=== PATIENT | female | born 1955 | race Two or more races ===

== ENCOUNTER 2022-12-22 14:41 | Emergency (ER) | payer OTHER ==
[~2022-12-22] VITALS: Ht 160 cm; Wt 73.0 kg
[2022-12-22 16:18] VITALS: BP 140/89
[2022-12-22] MEDS ORDERED: TETANUS-DIPTH-ACEL PERTUSSIS 0.5ML SYR Tdap IM ONE (16:45)
[2022-12-22] MEDS ORDERED: cefTRIAXone SOD 1,000 MG VL IM ONE (16:45)
[2022-12-22] MEDS ORDERED: AMOX500T86 PO (17:16)
[2022-12-22] MEDS ORDERED: NAPR500T31 PO (17:16)
== END 2022-12-22 17:28 | disposition home or self-care (01) ==
LOC: ER 14:41
DX: S61.250A Open bite of right index finger without damage to nail, initial encounter (principal); Z90.49 Acquired absence of other specified parts of digestive tract; Z90.710 Acquired absence of both cervix and uterus; Z88.1 Allergy status to other antibiotic agents; W54.0XXA Bitten by dog, initial encounter; Y93.89 Activity, other specified; Y92.89 Other specified places as the place of occurrence of the external cause; Y99.8 Other external cause status
CPT/HCPCS: 90471; 90715; 96372; 99284; J0696